=== PATIENT | female | born 1950 | race Caucasian/White ===

== ENCOUNTER → 2016-11-21 | Outpatient (CLI) | payer OTHER ==
[~2016-11-21] MED LIST: CEFDINIR300 MG PO; CYMBALTA60 MG PO; HYDROCHLOROTHIA25 MG PO; LEVO-T88 MCG PO; LEVOTHYROXINE88 MCG PO; LISINOPRIL20 MG PO; LISINOPRIL40 MG PO; LO-DOSE ASPIRIN81 M2 PO; LOVASTATIN20 MG PO; MEDROL DOSEPAK4 MG PO; MEVACOR20 MG PO; MOTRIN800 MG PO; NEXIUM40 MG PO; PERCOCET 5/31 TABLET PO; PRILOSEC OTC20 MG PO; PRILOSEC20 MG PO; TOLTERODINE TART2 MG PO; TYLENOL EXTRA500 MG PO; VITAMIN D2000 UNIT PO
== END | disposition home or self-care (01) ==
LOC: RAD 13:43
DX: M17.12 Unilateral primary osteoarthritis, left knee (principal); G89.29 Other chronic pain
CPT/HCPCS: 73564

== ENCOUNTER 2016-12-03 14:05 | Emergency (ER) | payer OTHER ==
[~2016-12-03] VITALS: Ht 170.2 cm; Wt 105.4 kg
[~2016-12-03 14:05] MED LIST changes: -LEVO-T88 MCG PO; -LO-DOSE ASPIRIN81 M2 PO; -MEVACOR20 MG PO; -MOTRIN800 MG PO
[2016-12-03] MEDS ORDERED: PERCOCET 5/31 TABLET PO (16:48)
[2016-12-03 17:47] VITALS: BP 131/71
[2016-12-05] MEDS ORDERED: MEVACOR20 MG PO (15:09)
[2016-12-05] MEDS ORDERED: LO-DOSE ASPIRIN81 M2 PO (15:09)
[2016-12-05] MEDS ORDERED: LEVO-T88 MCG PO (15:10)
[2016-12-05] MEDS ORDERED: HYDROCHLOROTHIA25 MG PO (15:10)
[2016-12-05] MEDS ORDERED: PERCOCET 5/31 TABLET PO (15:13)
[2016-12-05] MEDS ORDERED: MOTRIN800 MG PO (15:13)
== END 2016-12-03 17:48 | disposition home or self-care (01) ==
LOC: EME 14:05
PROC: 3E0234Z Introduction of Serum, Toxoid and Vaccine into Muscle, Percutaneous Approach (ICD-10-PCS; principal; 2016-12-03)
DX: S82.002A Unspecified fracture of left patella, initial encounter for closed fracture (principal); S80.212A Abrasion, left knee, initial encounter; W01.0XXA Fall on same level from slipping, tripping and stumbling without subsequent striking against object, initial encounter; Z23 Encounter for immunization; I10 Essential (primary) hypertension; E78.5 Hyperlipidemia, unspecified; Z87.891 Personal history of nicotine dependence
CPT/HCPCS: 73560; 99281; 99284

== ENCOUNTER 2016-12-06 06:22 | Day surgery (SDC) | payer OTHER ==
[~2016-12-06] VITALS: Ht 160 cm; Wt 105.3 kg
[~2016-12-06 06:22] MED LIST changes: +LEVO-T88 MCG PO; +LO-DOSE ASPIRIN81 M2 PO; +MEVACOR20 MG PO; +MOTRIN800 MG PO
[2016-12-06 06:45] VITALS: BP 115/65
[2016-12-06 16:35] VITALS: BP 170/83
[2016-12-06 19:06] VITALS: BP 157/78
== END 2016-12-06 19:15 | disposition home or self-care (01) ==
LOC: SDC 06:22 → 2EAST 06:23 → SDC 13:45 → 2EAST 19:15
DX: S82.042A Displaced comminuted fracture of left patella, initial encounter for closed fracture (principal); W19.XXXA Unspecified fall, initial encounter; Y92.009 Unspecified place in unspecified non-institutional (private) residence as the place of occurrence of the external cause; K21.9 Gastro-esophageal reflux disease without esophagitis; I10 Essential (primary) hypertension; E78.2 Mixed hyperlipidemia; Z87.891 Personal history of nicotine dependence; Z79.82 Long term (current) use of aspirin; Z80.1 Family history of malignant neoplasm of trachea, bronchus and lung; Z80.49 Family history of malignant neoplasm of other genital organs
CPT/HCPCS: 73560; 76000; C1713; G0378; J0690; J1100; J1170; J1200; J2250; J2405; J3010; J7030; S0020

== ENCOUNTER 2017-10-02 14:00 | Inpatient (IN) | payer OTHER ==
[~2017-10-02] VITALS: Ht 162.6 cm; Wt 107.7 kg
[~2017-10-02 14:00] MED LIST changes: +LEVO-T100 MCG PO; -LEVO-T88 MCG PO
[2017-10-02 14:55] LABS: APPEARANCE SL.HAZY ((CLEAR)); BILIRUBIN NEGATIVE; BLOOD NEGATIVE; COLOR YELLOW ((YELLOW)); GLUCOSE (STRIP) NEGATIVE; KETONES NEGATIVE; LEUKOCYTES TRACE; NITRITE NEGATIVE; PROTEIN (STRIP) NEGATIVE; SPECIFIC GRAVITY 1.024 (1.000-1.030)
[2017-10-02 15:03] LABS: BACTERIA NONE SEEN /HPF; EPITHELIAL CELLS RARE /HPF; HYALINE CASTS 0-5 /LPF; MUCUS TRACE /LPF; UCUL ADDED? YES
[2017-10-02 15:07] LABS: HEMATOCRIT 39.4 % (36.0-46.0); HEMOGLOBIN 13.4 G/DL (11.9-15.5); MCH 30.9 PG (29.0-34.0); MCV 90.8 FL (83-99); RBC DIS.WIDTH-CV 13.4 % (11.8-14.6); RBC DIS.WIDTH-SD 44.8 % (39-53); RED BLOOD COUNT 4.34 M/uL (3.80-5.20); WHITE BLOOD COUNT 4.5 K/uL (4.1-10.2)
[2017-10-02 15:21] LABS: ALBUMIN 4.2 g/dL (3.2-4.8); CHLORIDE 101 mEq/L (99-109); POTASSIUM 4.4 mEq/L (3.7-5.4); SODIUM 140 mEq/L (136-147)
[2017-10-02 15:24] LABS: GLUCOSE 93 mg/dL (70-99); TOTAL PROTEIN 7.4 g/dL (6.4-8.3)
[2017-10-02 15:25] LABS: TOTAL BILIRUBIN 0.7 mg/dL (0.0-1.0)
[2017-10-02 15:27] LABS: ALKALINE PHOSPHATASE 125 IU/L (3-129); CREATININE 1.6 mg/dL (0.6-1.3); GFR ESTIMATE (CALCULATED) 34 mL/min/
[2017-10-02 15:28] LABS: UREA NITROGEN (BUN) 35 mg/dL (9-23)
[2017-10-02 15:29] LABS: AST (GOT) 21 IU/L (2-34)
[2017-10-02 15:30] LABS: ALT (GPT) 15 IU/L (3-49)
[2017-10-02 15:31] LABS: LIPASE 12 U/L (1.0-51.0)
[2017-10-02 15:34] LABS: TROP-I INTERPRETATION NEGATIVE; TROPONIN-I < 0.01 ng/mL (0.0-0.30)
[2017-10-02 18:18] LABS: PLAT.SUFFICIENCY ADEQUATE; PLATELET COUNT 159 K/uL (156-360)
[2017-10-02 18:25] LABS: INTER. NORMALIZED RATIO 1.2
[2017-10-02] MEDS ORDERED: ESOMEPRAZOLE MA40 MG PO (18:34)
[2017-10-02 21:25] VITALS: BP 129/66
[2017-10-02 22:26] LABS: TROP-I INTERPRETATION NEGATIVE; TROPONIN-I < 0.01 ng/mL (0.0-0.30)
[2017-10-03 00:46] VITALS: BP 107/53
[2017-10-03 03:11] LABS: HEMATOCRIT 36.5 % (36.0-46.0); HEMOGLOBIN 12.3 G/DL (11.9-15.5); MCH 30.5 PG (29.0-34.0); MCHC 33.7 G/DL (30.0-36.0); MCV 90.6 FL (83-99); PLATELET COUNT 124 K/uL (156-360); RBC DIS.WIDTH-CV 13.6 % (11.8-14.6); RBC DIS.WIDTH-SD 45.3 % (39-53); RED BLOOD COUNT 4.03 M/uL (3.80-5.20); WHITE BLOOD COUNT 3.7 K/uL (4.1-10.2)
[2017-10-03 03:28] LABS: CHLORIDE 104 mEq/L (99-109); POTASSIUM 3.9 mEq/L (3.7-5.4); SODIUM 140 mEq/L (136-147)
[2017-10-03 03:30] LABS: GLUCOSE 100 mg/dL (70-99)
[2017-10-03 03:32] LABS: TROP-I INTERPRETATION NEGATIVE; TROPONIN-I < 0.01 ng/mL (0.0-0.30)
[2017-10-03 03:34] LABS: CREATININE 1.3 mg/dL (0.6-1.3); GFR ESTIMATE (CALCULATED) 44 mL/min/
[2017-10-03 03:35] LABS: UREA NITROGEN (BUN) 32 mg/dL (9-23)
[2017-10-03 04:19] VITALS: BP 110/62
[2017-10-03 07:43] VITALS: BP 104/59
[2017-10-03 11:20] VITALS: BP 115/61
[2017-10-03 15:24] VITALS: BP 94/59
[2017-10-03 20:02] VITALS: BP 112/60
[2017-10-04 00:11] VITALS: BP 112/58
[2017-10-04 04:28] VITALS: BP 118/79
[2017-10-04 06:38] LABS: HEMATOCRIT 38.2 % (36.0-46.0); HEMOGLOBIN 12.6 G/DL (11.9-15.5); MCH 30.2 PG (29.0-34.0); MCV 91.6 FL (83-99); NRBC (%) 0.6 /100 WBC (0-0); PLATELET COUNT 140 K/uL (156-360); RBC DIS.WIDTH-CV 13.4 % (11.8-14.6); RBC DIS.WIDTH-SD 45.4 % (39-53); RED BLOOD COUNT 4.17 M/uL (3.80-5.20); WHITE BLOOD COUNT 3.5 K/uL (4.1-10.2)
[2017-10-04 06:59] LABS: CHLORIDE 102 MEQ/L (99-109); CREATININE 1.1 MG/DL (0.6-1.3); GFR ESTIMATE (CALCULATED) 53 mL/min/; GLUCOSE 93 mg/dL (70-99); POTASSIUM 4.1 MEQ/L (3.7-5.4); SODIUM 139 MEQ/L (136-147); UREA NITROGEN (BUN) 29 mg/dL (9-23)
[2017-10-04 07:15] VITALS: BP 114/63
[2017-10-04 10:36] LABS: STOOL OCCULT BLD 1ST SPECIMEN NEGATIVE
[2017-10-04 15:37] VITALS: BP 109/64
[2017-10-04 19:05] VITALS: BP 122/62
[2017-10-04 23:45] VITALS: BP 110/65
[2017-10-05 03:35] VITALS: BP 107/63
[2017-10-05 07:23] LABS: HEMATOCRIT 37.9 % (36.0-46.0); HEMOGLOBIN 12.1 G/DL (11.9-15.5); MCHC 31.9 G/DL (30.0-36.0); MCV 90.9 FL (83-99); PLATELET COUNT 143 K/uL (156-360); RBC DIS.WIDTH-CV 13.3 % (11.8-14.6); RBC DIS.WIDTH-SD 44.9 % (39-53); RED BLOOD COUNT 4.17 M/uL (3.80-5.20); WHITE BLOOD COUNT 4.2 K/uL (4.1-10.2)
[2017-10-05 07:25] VITALS: BP 109/51
[2017-10-05] MEDS ORDERED: ELIQUIS5 MG PO (13:47)
[2017-10-05] MEDS ORDERED: SUCRALFATE1 GM/10 ML PO (13:49)
== END 2017-10-05 15:53 | disposition home or self-care (01) | DRG 176 ==
LOC: EME 14:00 → EDOF 19:56 → ENRESERV 19:59 → 2EASTP 20:59 → ENPENDDIS 10-05 → 2EASTP 10-05 15:53
PROVIDERS: Hospitalist; Internal Medicine; Physician Assistant
DX: I26.99 Other pulmonary embolism without acute cor pulmonale (principal); K29.70 Gastritis, unspecified, without bleeding; T39.395A Adverse effect of other nonsteroidal anti-inflammatory drugs [NSAID], initial encounter; N17.9 Acute kidney failure, unspecified; I10 Essential (primary) hypertension; E78.5 Hyperlipidemia, unspecified; E03.9 Hypothyroidism, unspecified; K21.9 Gastro-esophageal reflux disease without esophagitis; F32.9 Major depressive disorder, single episode, unspecified; E66.9 Obesity, unspecified; Z68.41 Body mass index [BMI] 40.0-44.9, adult; Z79.82 Long term (current) use of aspirin; Z87.891 Personal history of nicotine dependence; Z80.1 Family history of malignant neoplasm of trachea, bronchus and lung; Z80.49 Family history of malignant neoplasm of other genital organs; Z80.8 Family history of malignant neoplasm of other organs or systems; Z82.49 Family history of ischemic heart disease and other diseases of the circulatory system
CPT/HCPCS: 71046; 71275; 74177; 80048; 80053; 81003; 82272; 83690; 84484; 85027; 85379; 85610; 85730; 87086; 93005; 93970; 99281; 99284; J2405; J7030